=== PATIENT | female | born 1945 | race Caucasian/White ===

== ENCOUNTER 2019-12-26 19:40 | Emergency (ER) | payer BC, MEDICARE ==
--- NOTE | 2019-12-26 20:36 | EDM.PDOC ---
ED HPI GENERAL MEDICAL PROBLEM - General Chief Complaint: General Stated Complaint: flashes/spots in left eye Time Seen by Provider: 12/26/19 20:22 Source of Information: Reports: Patient History Limitations: Reports: No Limitations - History of Present Illness INITIAL COMMENTS - FREE TEXT/NARRATIVE: This patient is a 74 year old female that presents to the ER. Patient reports that last night at 8pm she was watching tv when she started having flashes of light in her left eye. Then, started having floaters in that eye. She reports no pain with it. She reports then throughout today she started to notice peripheral vision loss to the left eye. She came to the ER to have her eye checked. Onset Date: 12/25/19 Onset Time: 20:00 Duration: Day(s): (1) Location: Reports: Other (left eye) Severity: Moderate Improves with: Reports: None Worsens with: Reports: None Associated Symptoms: Reports: No Other Symptoms. Denies: Confusion, Chest Pain, Cough, cough w sputum, Diaphoresis, Fever/Chills, Headaches, Loss of Appetite, Malaise, Nausea/Vomiting, Rash, Seizure, Shortness of Breath, Syncope, Weakness - Related Data Allergies Allergy/AdvReac Type Severity Reaction Status Date / Time cefuroxime Allergy Facial Verified 12/26/19 20:32 Swelling chlorhexidine Allergy Facial Verified 12/26/19 20:32 Swelling erythromycin base Allergy Facial Verified 12/26/19 20:32 Swelling fentanyl Allergy Swollen Verified 12/26/19 20:32 Tongue gabapentin Allergy Facial Verified 12/26/19 20:32 Swelling hydrocodone Allergy Facial Verified 12/26/19 20:32 Swelling ketorolac [From Toradol] Allergy Facial Verified 12/26/19 20:32 Swelling levofloxacin [From Levaquin] Allergy Facial Verified 12/26/19 20:32 Swelling midazolam [From Versed] Allergy Facial Verified 12/26/19 20:32 Swelling oxycodone Allergy Facial Verified 12/26/19 20:32 Swelling Penicillins Allergy Swelling Verified 12/26/19 20:32 Sulfa (Sulfonamide Allergy Facial Verified 12/26/19 20:32 Antibiotics) Swelling sumatriptan [From Imitrex] Allergy Facial Verified 12/26/19 20:32 Swelling tetracycline Allergy Facial Verified 12/26/19 20:32 Swelling Home Meds: Home Meds Acetaminophen [Tylenol Extra Strength] 1,000 mg PO TID 12/26/19 [History] Aspirin 81 mg PO DAILY 12/26/19 [History] Calcium Carbonate/Vitamin D3 [Calcium 1,000 + D3 Caplet] 1 tab PO DAILY 12/26/19 [History] Clopidogrel Bisulfate [Plavix] 75 mg PO DAILY 12/26/19 [History] Omeprazole Magnesium [Prilosec] 20 mg PO BID 12/26/19 [History] Simvastatin [Zocor] 10 mg PO DAILY 12/26/19 [History] lisinopriL [Lisinopril] 20 mg PO BID 12/26/19 [History] nitrofurantoin macrocrystaL [Nitrofurantoin] 1 tab PO ASDIRECTED PRN 12/26/19 [History] traMADol [Ultram] 50 mg PO Q4HR PRN 12/26/19 [History] Past Medical History Cardiovascular History: Reports: High Cholesterol, Hypertension, [place], Stents Other Cardiovascular History: LA 2013. stents placed 2013 Gastrointestinal History: Reports: GERD Musculoskeletal History: Reports: Other (See Below) Other Musculoskeletal History: C5-C7 fractures Endocrine/Metabolic History: Reports: Osteoporosis, Other (See Below) Other Endocrine/Metabolic History: parathyroid tumor Oncologic (Cancer) History: Reports: Cervix - Past Surgical History HEENT Surgical History: Reports: Other (See Below) Other HEENT Surgeries/Procedures: hx of uveitis Endocrine Surgical History: Reports: Parathyroidectomy Musculoskeletal Surgical History: Reports: Hip Replacement, Knee Replacement Other Musculoskeletal Surgeries/Procedures:: bilateral total hip replacements. left total knee replacement Social & Family History - Tobacco Use Smoking Status *Q: Current Every Day Smoker Years of Tobacco use: 54 Packs/Tins Daily: 1 - Caffeine Use Caffeine Use: Reports: Coffee - Recreational Drug Use Recreational Drug Use: No ED ROS GENERAL - Review of Systems Review Of Systems: See Below Constitutional: Reports: No Symptoms HEENT: Reports: Vision Change (left eye black spots, floaters, peripheral vision loss, flashes of light). Denies: Eye Pain Respiratory: Reports: No Symptoms Cardiovascular: Reports: No Symptoms Endocrine: Reports: No Symptoms GI/Abdominal: Reports: No Symptoms. Denies: Nausea, Vomiting : Reports: No Symptoms Musculoskeletal: Reports: No Symptoms Skin: Reports: No Symptoms Neurological: Reports: No Symptoms. Denies: Dizziness, Headache, Syncope, Trouble Speaking, Difficulty Walking, Change in Speech Psychiatric: Reports: No Symptoms Hematologic/Lymphatic: Reports: No Symptoms Immunologic: Reports: No Symptoms ED EXAM, GENERAL - Physical Exam Exam: See Below Exam Limited By: No Limitations General Appearance: Alert, WD/WN, No Apparent Distress Eye Exam: Bilateral Eye: EOMI, Normal Inspection, PERRL Ears: Normal External Exam, Normal Canal, Hearing Grossly Normal, Normal TMs Ear Exam: Bilateral Ear: Auricle Normal, Canal Normal, TM normal Nose: Normal Inspection, Normal Mucosa, No Blood Throat/Mouth: Normal Inspection, Normal Lips, Normal Teeth, Normal Gums, Normal Oropharynx, Normal Voice, No Airway Compromise Head: Atraumatic, Normocephalic Neck: Normal Inspection, Supple, Non-Tender, Full Range of Motion Respiratory/Chest: No Respiratory Distress, Lungs Clear, Normal Breath Sounds, No Accessory Muscle Use Cardiovascular: Normal Peripheral Pulses, Regular Rate, Rhythm, No Edema, No Gallop, No JVD, No Murmur, No Rub Course - Vital Signs Last Recorded V/S: Last Vital Signs Temp 96.3 F L 12/26/19 20:20 Pulse 79 12/26/19 20:20 Resp 16 12/26/19 20:20 BP 202/78 H 12/26/19 20:22 Pulse Ox 95 12/26/19 20:20 - Orders/Labs/Meds Labs: Laboratory Tests 12/26/19 12/26/19 12/26/19 Range/Units 20:50 20:50 20:50 WBC 8.0 (5.0-10.0) 10^3/uL RBC 4.23 (4.00-5.50) 10^6/uL Hgb 11.9 L (12.0-16.0) g/dL Hct 37.1 (37.0-47.0) % MCV 87.7 (82.0-94.0) fL MCH 28.1 (27.0-32.0) pg MCHC 32.1 L (33.0-38.0) g/dL RDW Coeff of Juanito 17.0 H (11.0-15.0) % Plt Count 462 H (150-400) 10^3/uL Neut % (Auto) 56.0 (35-85) % Lymph % (Auto) 30.0 (10-55) % [place] % (Auto) 10.9 (0-16) % Eos % (Auto) 2.2 (0-5) % Baso % (Auto) 0.9 (0-3) % Neut # (Auto) 4.50 (1.80-7.00) 10^3/uL Lymph # (Auto) 2.41 (1.00-4.80) 10^3/uL [place] # (Auto) 0.88 H (0.00-0.80) 10^3/uL Eos # (Auto) 0.18 (0.00-0.45) 10^3/uL Baso # (Auto) 0.07 10^3/uL PT 10.7 (9.7-12.3) SEC INR 1.06 (0.92-1.18) Sodium 137 (136-145) mEq/L Potassium 4.5 (3.5-5.0) mEq/L Chloride 99 (98-106) mEq/L Carbon Dioxide 30 (21-32) mmol/L BUN 22 H (7-18) mg/dL Creatinine 1.8 H (0.6-1.0) mg/dL Est Cr Clr Drug Dosing 24.40 mL/min Estimated GFR (MDRD) 28 L (>=60) mL/min Glucose 97 (75-99) mg/dL Calcium 9.1 (8.4-10.1) mg/dL Total Bilirubin 0.2 (0.0-1.0) mg/dL AST 15 (15-37) U/L ALT 14 (12-78) U/L Alkaline Phosphatase 106 (46-116) U/L Lactate Dehydrogenase 171 (100-190) U/L Creatine Kinase 146 (21-215) U/L Troponin I < 0.017 (0.00-0.06) ng/mL Total Protein 7.9 (6.4-8.2) g/dL Albumin 3.8 (3.4-5.0) g/dL - Re-Assessments/Exams Free Text/Narrative Re-Assessment/Exam: 12/26/19 21:06 Due to patient HTN in the ER, and her symptoms. I did consult with Jacque about this patient. I believe its a retinal detachment, but wanted to be sure nothing medical need to do with her BP with those symptoms. Dr. Min Santillan reports to do nothing with BP. Just refer to eye. Reports not hypertensive emergency. Patient has no symptoms of unilateral weakness, chest pain, shortness of breath, nausea, dizziness. 12/26/19 21:14 I have tried to call [facility] [employer] [facility] without an answer. I then called Dr. Piper Araujo, she called back but she is out of town. She gave me Dr. Bernard cell, but he is not answering. I then just now left a voicemail with Dr. Scruggs. 12/26/19 21:27 Dr. Scruggs called back, he reports to have patient avoid heavy lift. Have patient call office in morning tomorrow to be seen. As soon as I hung up, Dr. Bernard called back and added have patient lay on back with eyes up, hold blood thinners tomorrow. Call office in morning for possible surgery. 12/26/19 21:33 I have reviewed patient labs. Her CR is 1.8. I have no previous labs. I recommended fluid bolus and correction of this lab. She has refused. She reports she is here for her eye and is ready to leave. She reports that she will followup with her family doctor about that lab and drink plenty of fluids at home. 12/26/19 21:35 Departure - Departure Time of Disposition: 21:29 Disposition: Home, Self-Care 01 Condition: Fair Clinical Impression: Elevated creatine kinase level Retinal detachment Qualifiers: Laterality: left Qualified Code(s): H33.22 - Serous retinal detachment, left eye Hypertension Qualifiers: Hypertension type: unspecified Qualified Code(s): I10 - Essential (primary) hypertension - Discharge Information *PRESCRIPTION DRUG MONITORING PROGRAM REVIEWED*: Not Applicable *COPY OF PRESCRIPTION DRUG MONITORING REPORT IN PATIENT JUDE: Not Applicable Instructions: Creatine Kinase Test, Retinal Detachment, Hypertension, Adult, [id number] Referrals: PCP,Unknown [Primary Care Provider] - Forms: ED Department Discharge Additional Instructions: Followup with Dr. Bernard: Call [phone] at 8am to be seen that morning [facility] [address] [place], [place] Lay on back with eyes up No heavy lifting Rest Do not take your Plavix or blood thinners tomorrow Return to the ER for weakness, complete vision loss, stroke, heart attack Followup with your primary care provider regarding your Creatnine lab Sepsis Event Note (ED) - Evaluation Sepsis Screening Result: No Definite Risk - Focused Exam Vital Signs: Vital Signs Temp Pulse Resp BP BP Pulse Ox 12/26/19 20:22 202/78 H 12/26/19 20:20 96.3 F L 79 16 210/142 H 95 12/26/19 19:45 96.3 F L 79 18 219/88 H 97 - Assessment/Plan Plan: PLEASE SEE RN NOTE FOR PFSH.
[2019-12-26 21:16] LABS: CHLORIDE,CL 99 mEq/L (98-106); SODIUM,NA 137 mEq/L (136-145)
== END 2019-12-26 21:38 | disposition home or self-care (01) ==
LOC: CC.ED 19:40
DX: H33.22 Serous retinal detachment, left eye (principal); I10 Essential (primary) hypertension; R74.8 Abnormal levels of other serum enzymes; E78.00 Pure hypercholesterolemia, unspecified; I25.2 Old myocardial infarction; K21.9 Gastro-esophageal reflux disease without esophagitis; M81.0 Age-related osteoporosis without current pathological fracture; F17.210 Nicotine dependence, cigarettes, uncomplicated; Z88.1 Allergy status to other antibiotic agents; Z88.0 Allergy status to penicillin; Z88.2 Allergy status to sulfonamides; Z88.3 Allergy status to other anti-infective agents; Z88.4 Allergy status to anesthetic agent; Z88.6 Allergy status to analgesic agent; Z88.9 Allergy status to unspecified drugs, medicaments and biological substances; Z88.8 Allergy status to other drugs, medicaments and biological substances; Z79.82 Long term (current) use of aspirin; Z79.899 Other long term (current) drug therapy; Z79.02 Long term (current) use of antithrombotics/antiplatelets
CPT/HCPCS: 36415; 80053; 82550; 83615; 84484; 85025; 85610; 99284

== ENCOUNTER 2020-03-22 15:55 | Observation (INO) | payer BC, MEDICARE ==
[2020-03-22 16:32] LABS: CHLORIDE,CL 95 mEq/L (98-106); SODIUM,NA 133 mEq/L (136-145)
--- NOTE | 2020-03-22 18:43 | EDM.PDOC ---
ED HPI GENERAL MEDICAL PROBLEM - General Chief Complaint: Neuro Symptoms/Deficits Stated Complaint: ER Time Seen by Provider: 03/22/20 16:15 Source of Information: Reports: Patient History Limitations: Reports: No Limitations - History of Present Illness INITIAL COMMENTS - FREE TEXT/NARRATIVE: Mel is a 74 year old female who presents to ER with complaints of vision changes in her left eye. Patient was seen this am by Vijay Tripathi for a hospital follow up. 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 She was sent home on Plavix and was to take Lisinopril but "said did not understand it like that so had not been taking it". Blood pressure was very high at 214/108. She said she "was not that concerned about this as she was told by neurology that her blood pressure would be high after all of this". She has had difficulty with peripheral vision of her right eye since that time. Also relates that she had been on Plavix prior to her stroke but it was stopped due to hemorrhages in her eye. She had also been scheduled to see a tree driller in [place] but relates "would want to keep all my doctoring in [place] as that is where I lived until 2 months ago" Per history, patient has also bee on Amlodipine and ImDur in December and Clonidine but states "they did not work". Vijay reviewed her discharge notes that patient was to start Lisinopril on discharge from [place]. She was sent to [facility] this am for IV Labetalol due to high blood pressure at visit. In [facility], blood pressure was 264/99. Was given IV med and repeat blood pressure did improve to 203/80. Had been discussed about giving further 10 mg of the med but patient refused as wanted to go home and take her own meds. This afternoon, patient noted that her vision was blurry in her left eye and was advised to be seen in the ER. No change in headache, no numbness, tingling or weakness in extremities. States is starting to get back some of her word recall back but really cannot read or write yet. Onset: Today, Gradual Duration: Hour(s):, Getting Worse Location: Reports: Head Associated Symptoms: Denies: Confusion, Chest Pain, Cough, cough w sputum, Fever/Chills, Headaches, Nausea/Vomiting, Seizure, Shortness of Breath - Related Data Allergies Allergy/AdvReac Type Severity Reaction Status Date / Time cefuroxime Allergy Facial Verified 03/22/20 11:53 Swelling chlorhexidine Allergy Facial Verified 03/22/20 11:53 Swelling erythromycin base Allergy Facial Verified 03/22/20 11:53 Swelling fentanyl Allergy Swollen Verified 03/22/20 11:53 Tongue gabapentin Allergy Facial Verified 03/22/20 11:53 Swelling hydrocodone Allergy Facial Verified 03/22/20 11:53 Swelling ketorolac [From Toradol] Allergy Facial Verified 03/22/20 11:53 Swelling levofloxacin [From Levaquin] Allergy Facial Verified 03/22/20 11:53 Swelling midazolam [From Versed] Allergy Facial Verified 03/22/20 11:53 Swelling oxycodone Allergy Facial Verified 03/22/20 11:53 Swelling Penicillins Allergy Swelling Verified 03/22/20 11:53 Sulfa (Sulfonamide Allergy Facial Verified 03/22/20 11:53 Antibiotics) Swelling sumatriptan [From Imitrex] Allergy Facial Verified 03/22/20 11:53 Swelling tetracycline Allergy Facial Verified 03/22/20 11:53 Swelling Home Meds: Home Meds Acetaminophen [Tylenol Extra Strength] 1,000 mg PO TID 12/26/19 [History] Aspirin 81 mg PO DAILY 12/26/19 [History] Calcium Carbonate/Vitamin D3 [Calcium 1,000 + D3 Caplet] 1 tab PO DAILY 12/26/19 [History] Clopidogrel Bisulfate [Plavix] 75 mg PO DAILY 12/26/19 [History] Omeprazole Magnesium [Prilosec] 20 mg PO BID 12/26/19 [History] Simvastatin [Zocor] 10 mg PO DAILY 12/26/19 [History] lisinopriL [Lisinopril] 20 mg PO BID 12/26/19 [History] nitrofurantoin macrocrystaL [Nitrofurantoin] 1 tab PO ASDIRECTED PRN 12/26/19 [History] traMADol [Ultram] 50 mg PO Q4HR PRN 12/26/19 [History] Past Medical History Cardiovascular History: Reports: High Cholesterol, Hypertension, [place], Stents Other Cardiovascular History: NE 2013. stents placed 2013 Gastrointestinal History: Reports: GERD Musculoskeletal History: Reports: Other (See Below) Other Musculoskeletal History: C5-C7 fractures Endocrine/Metabolic History: Reports: Osteoporosis, Other (See Below) Other Endocrine/Metabolic History: parathyroid tumor Oncologic (Cancer) History: Reports: Cervix - Past Surgical History HEENT Surgical History: Reports: Other (See Below) Other HEENT Surgeries/Procedures: hx of uveitis Endocrine Surgical History: Reports: Parathyroidectomy Musculoskeletal Surgical History: Reports: Hip Replacement, Knee Replacement Other Musculoskeletal Surgeries/Procedures:: bilateral total hip replacements. left total knee replacement Social & Family History - Tobacco Use Tobacco Use Status *Q: Current Every Day Tobacco User Years of Tobacco use: 54 Packs/Tins Daily: 1.5 - Caffeine Use Caffeine Use: Reports: Coffee, Soda - Recreational Drug Use Recreational Drug Use: No ED ROS GENERAL - Review of Systems Review Of Systems: See Below Constitutional: Denies: Fever, Chills, Malaise, Weakness, Fatigue, Decreased Appetite HEENT: Reports: Vision Change (history of peripheral vision loss of right eye, now having blurred vision in left eye). Denies: Ear Pain, Eye Discharge, Eye Pain, Nose Pain, Sinus Problem, Throat Pain, Vertigo Respiratory: Denies: Shortness of Breath, Cough Cardiovascular: Denies: Chest Pain, Edema, Lightheadedness Endocrine: Denies: Fatigue GI/Abdominal: Reports: Abdominal Pain (was having cramping to abdomen prior to my arrival, states now resolved). Denies: Constipation, Diarrhea, Nausea, Vomiting : Reports: No Symptoms Musculoskeletal: Reports: No Symptoms Skin: Reports: No Symptoms Neurological: Reports: Headache (has had mild headaches at times), Pre-Existing Deficit, Difficulty Walking (admits to balance issues prior to stroke at the end of January but has improved now). Denies: Syncope, Weakness Psychiatric: Reports: No Symptoms ED EXAM, NEURO - Physical Exam Exam: See Below Exam Limited By: No Limitations General Appearance: Alert, WD/WN, No Apparent Distress Eye Exam: Bilateral Eye: EOMI (some nystagumus noted to right eye with lateral gaze), PERRL Ears: Normal External Exam, Normal TMs Nose: Normal Inspection, Normal Mucosa, No Blood Throat/Mouth: Normal Inspection, Normal Oropharynx Head Exam: Normocephalic Neck: Normal Inspection, Supple, Non-Tender Respiratory/Chest: No Respiratory Distress, Lungs Clear, Normal Breath Sounds Cardiovascular: Regular Rate, Rhythm GI/Abdominal: Normal Bowel Sounds, Soft, Non-Tender Neurological: Alert, Normal Mood/Affect, Normal Dorsiflexion, CN II-XII Intact, Normal Plantar Flexion, Oriented x 3, Other (patient unable to identify pictures by name, ie could describe the chair as "something you sit on" but unable to name. ) Extremities: Normal Inspection, No Pedal Edema Skin Exam: Warm, Dry Course - Vital Signs Last Recorded V/S: Last Vital Signs Temp 98.4 F 03/22/20 16:55 Pulse 66 03/22/20 17:40 Resp 14 03/22/20 17:40 BP 158/80 H 03/22/20 17:40 Pulse Ox 94 L 03/22/20 17:40 - Orders/Labs/Meds Orders: Active Orders 24 hr Category Date Time Status Blood Glucose Check, Bedside [] ONETIME Care 03/22/20 15:35 Active Telemetry Monitoring [Cardiac Monitoring] [RC] . Care 03/22/20 15:35 Active DIRECTED Head wo Cont [CT] Stat Exams 03/22/20 16:29 Taken Labs: Laboratory Tests 03/22/20 03/22/20 03/22/20 Range/Units 16:05 16:10 16:10 WBC (5.0-10.0) 10^3/uL RBC (4.00-5.50) 10^6/uL Hgb (12.0-16.0) g/dL Hct (37.0-47.0) % MCV (82.0-94.0) fL MCH (27.0-32.0) pg MCHC (33.0-38.0) g/dL RDW Coeff of Juanito (11.0-15.0) % Plt Count (150-400) 10^3/uL Neut % (Auto) (35-85) % Lymph % (Auto) (10-55) % Clark % (Auto) (0-16) % Eos % (Auto) (0-5) % Baso % (Auto) (0-3) % Neut # (Auto) (1.80-7.00) 10^3/uL Lymph # (Auto) (1.00-4.80) 10^3/uL Clark # (Auto) (0.00-0.80) 10^3/uL Eos # (Auto) (0.00-0.45) 10^3/uL Baso # (Auto) 10^3/uL PT 11.0 (9.7-12.3) SEC INR 1.09 (0.92-1.18) Sodium 133 L (136-145) mEq/L Potassium 2.9 L* D (3.5-5.0) mEq/L Chloride 95 L (98-106) mEq/L Carbon Dioxide 32 (21-32) mmol/L BUN 24 H (7-18) mg/dL Creatinine 1.5 H (0.6-1.0) mg/dL Est Cr Clr Drug Dosing TNP Estimated GFR (MDRD) 34 L (>=60) mL/min Glucose 116 H (75-99) mg/dL POC Glucose 131 H (75-105) mg/dl Calcium 8.8 (8.4-10.1) mg/dL Magnesium 1.7 L (1.8-2.4) mg/dL Creatine Kinase 127 (21-215) U/L Troponin I 0.028 (0.00-0.06) ng/mL Urine Color (YELLOW) Urine Appearance (CLEAR) Urine pH (4.5-8.0) Ur Specific [place] (1.003-1.020) Urine Protein (NEGATIVE) mg/dL Urine Glucose (UA) (NEGATIVE) mg/dL Urine Ketones (NEGATIVE) mg/dL Urine Occult Blood (NEGATIVE) Urine Nitrite (NEGATIVE) Urine Bilirubin (NEGATIVE) Urine Urobilinogen (0.2-1.0) EU/dL Ur Leukocyte Esterase (NEGATIVE) Urine RBC Urine WBC 03/22/20 03/22/20 Range/Units 16:10 16:15 WBC 7.9 (5.0-10.0) 10^3/uL RBC 4.24 (4.00-5.50) 10^6/uL Hgb 12.1 (12.0-16.0) g/dL Hct 37.1 (37.0-47.0) % MCV 87.5 (82.0-94.0) fL MCH 28.5 (27.0-32.0) pg MCHC 32.6 L (33.0-38.0) g/dL RDW Coeff of Juanito 15.1 H (11.0-15.0) % Plt Count 465 H (150-400) 10^3/uL Neut % (Auto) 64.6 (35-85) % Lymph % (Auto) 20.8 (10-55) % [place] % (Auto) 13.1 (0-16) % Eos % (Auto) 0.9 (0-5) % Baso % (Auto) 0.6 (0-3) % Neut # (Auto) 5.09 (1.80-7.00) 10^3/uL Lymph # (Auto) 1.64 (1.00-4.80) 10^3/uL [place] # (Auto) 1.03 H (0.00-0.80) 10^3/uL Eos # (Auto) 0.07 (0.00-0.45) 10^3/uL Baso # (Auto) 0.05 10^3/uL PT (9.7-12.3) SEC INR (0.92-1.18) Sodium (136-145) mEq/L Potassium (3.5-5.0) mEq/L Chloride (98-106) mEq/L Carbon Dioxide (21-32) mmol/L BUN (7-18) mg/dL Creatinine (0.6-1.0) mg/dL Est Cr Clr Drug Dosing Estimated GFR (MDRD) (>=60) mL/min Glucose (75-99) mg/dL POC Glucose (75-105) mg/dl Calcium (8.4-10.1) mg/dL Magnesium (1.8-2.4) mg/dL Creatine Kinase (21-215) U/L Troponin I (0.00-0.06) ng/mL Urine Color Rachael (YELLOW) Urine Appearance Slightly cloudy (CLEAR) Urine pH 5.5 (4.5-8.0) Ur Specific [place] >= 1.030 H (1.003-1.020) Urine Protein >=300 H (NEGATIVE) mg/dL Urine Glucose (UA) Negative (NEGATIVE) mg/dL Urine Ketones Negative (NEGATIVE) mg/dL Urine Occult Blood Small H (NEGATIVE) Urine Nitrite Negative (NEGATIVE) Urine Bilirubin Negative (NEGATIVE) Urine Urobilinogen 0.2 (0.2-1.0) EU/dL Ur Leukocyte Esterase Small H (NEGATIVE) Urine RBC QNS Urine WBC QNS - Re-Assessments/Exams Free Text/Narrative Re-Assessment/Exam: 03/22/20 Labs noted. Potassium is low at 2.9. CT read as improved from prior CT. Contacted [facility] and spoke with Dr. Saldivar, neurosurgeon on stroke team. He reviewed films and relates that likely vision changes, prior CVA related to hypertensive changes. Edema had much improved and notes small hemo rrhage on CT today. Advised to hold Plavix for 5 days and repeat scan unless changes prior to this. May consider MRI on Friday. Strict blood pressure control to attempt to maintain around 140/90 or less. Advised patient on consult. Informed of concerns with nicotine use but admits "will never be able to stop". Tried to stop one time "and I nearly went crazy". Was advised that changes may all be related to hypertension. Discussed previous appointment that was scheduled with Dr. Reynolds and states she is willing to see a tree driller but in "[place]". Advised of small hemorrhage and need of strict blood pressure control to prevent further bleeding or massive stroke. She states she does not want CPR, Intubation and if that happens, need to "let me ". patient is agreeable to observation as recommended by neurosurgery. Will monitor telemetry and blood pressures. Departure - Departure Time of Disposition: 19:02 Disposition: Refer to Observation Condition: Fair Clinical Impression: Hypertensive urgency - Discharge Information *PRESCRIPTION DRUG MONITORING PROGRAM REVIEWED*: No *COPY OF PRESCRIPTION DRUG MONITORING REPORT IN PATIENT JUDE: No Referrals: PCP,Unobtain [Primary Care Provider] - Sepsis Event Note (ED) - Evaluation Sepsis Screening Result: No Definite Risk - Focused Exam Vital Signs: Vital Signs Temp Pulse Resp BP Pulse Ox 03/22/20 17:40 66 14 158/80 H 94 L 03/22/20 17:25 66 18 162/65 H 94 L 03/22/20 17:10 64 15 164/66 H 94 L 03/22/20 16:55 98.4 F 64 14 145/69 H 96 03/22/20 16:40 64 15 149/73 H 94 L 03/22/20 16:32 97.1 F 70 20 184/72 H 99 03/22/20 16:25 72 14 182/77 H 94 L 03/22/20 16:10 72 20 170/60 H 95 03/22/20 15:55 97.1 F 70 20 184/72 H 99 - Problem List & Annotations (1) Hypokalemia SNOMED Code(s): 73603993 Code(s): E87.6 - HYPOKALEMIA Status: Acute Priority: High Current Visit: Yes (2) Hypertensive urgency SNOMED Code(s): 944648924 Code(s): I16.0 - HYPERTENSIVE URGENCY Status: Acute Priority: High Current Visit: Yes - Problem List Review Problem List Initiated/Reviewed/Updated: Yes - My Orders Last 24 Hours: My Active Orders 03/22/20 15:35 Blood Glucose Check, Bedside [RC] ONETIME Telemetry Monitoring [Cardiac Monitoring] [RC] . DIRECTED 03/22/20 16:29 Head wo Cont [CT] Stat - Assessment/Plan Admission H&P: Please use this note as an admission H&P Last 24 Hours: My Active Orders 03/22/20 15:35 Blood Glucose Check, Bedside [RC] ONETIME Telemetry Monitoring [Cardiac Monitoring] [RC] . DIRECTED 03/22/20 16:29 Head wo Cont [CT] Stat Assessment:: Hypertensive Urgency Hypokalemia Plan: Admit to observation. Will continue with telemetry, blood pressures every 4 hours. Lisinopril BID. Hold Plavix. Repeat CT scan if neuro changes or again in 5 days.
[2020-03-22] MEDS ORDERED: TRAMADOL 50 MG PO PRN (19:18)
[2020-03-22] MEDS ORDERED: NITROFURANTOIN MACROCRYSTAL PO PRN (19:18)
[2020-03-22] MEDS ORDERED: Acetaminophen 325 MG Tab PO PRN (19:32)
[2020-03-22] MEDS ORDERED: Sodium Chloride 0.9% 10 ML Syringe FLUSH PRN (19:32)
[2020-03-22] MEDS ORDERED: Ondansetron 4 MG/2 ML SDV IV PRN (19:32)
[2020-03-22] MEDS ORDERED: Ondansetron 4 MG Tab.DIS PO PRN (19:32)
[2020-03-22] MEDS: OMEPRAZOLE MAGNESIUM 20 MG PO SCH (20:25)
[2020-03-22] MEDS: LISINOPRIL 20 MG PO SCH (20:25)
[2020-03-22] MEDS: Acetaminophen 500 MG Tab PO SCH (20:31)
[2020-03-22] MEDS: NS + KCl 20mEq/L 1,000 ML IV SCH (20:39)
[2020-03-22] MEDS: Nicotine 21 MG/24 Hr Patch TRDERM SCH (21:17)
[2020-03-23] MEDS ORDERED: diphenhydrAMINE 25 MG Cap PO ONE (02:38)
[2020-03-23] MEDS: NS + KCl 20mEq/L 1,000 ML IV SCH (06:14)
[2020-03-23] MEDS ORDERED: Aspirin 81 MG Tab.Chew PO SCH (08:00)
[2020-03-23] MEDS ORDERED: VITAMIN D3 PO SCH (08:00)
[2020-03-23] MEDS ORDERED: ATORVASTATIN 40MG TAB PO SCH (08:00)
[2020-03-23] MEDS ORDERED: CALCIUM 600 MG PO SCH (08:00)
[2020-03-23] MEDS: LISINOPRIL 20 MG PO SCH (08:51)
[2020-03-23] MEDS: Acetaminophen 500 MG Tab PO SCH (08:51)
[2020-03-23] MEDS: OMEPRAZOLE MAGNESIUM 20 MG PO SCH (08:51)
[2020-03-23] MEDS: Nicotine 21 MG/24 Hr Patch TRDERM SCH (08:52)
--- NOTE | 2020-03-23 08:55 | PCM.DCSUM1 ---
Discharge Summary - Hospital Course HPI Initial Comments: Mel is a 74 yo female who was admitted from the ED yesterday after having some vision changes in her left eye. She was seen prior in clinic and did have extremely high blood pressure and attempted to bring down in same day care with IV labetolol. Patient declined second dose of Labetolol and left ambulatory. She started to have blurry vision in her left eye after getting home and called back into the clinic as she wasn't sure what to do. Patient was advised to go immediately to the ED. Patient was admitted secondary to hypertensive urgency and operator electronic warfare provider, Iris Galvez, did consult with neurosurgery in [place] after getting a CT scan of the brain. It was felt the CT scan had shown improvement from prior stroke a couple weeks ago. Neurosurgery recommended admission to closely monitor blood pressure. Advised to hold Plavix for 5 days. - Discharge Data Discharge Date: 03/23/20 Discharge Disposition: Home, Self-Care 01 Condition: Good - Referral to Home Health Primary Care Physician: Ricardo Tripathi PA-C - Discharge Diagnosis/Problem(s) (1) Hypertensive urgency SNOMED Code(s): 109053875 ICD Code: I16.0 - HYPERTENSIVE URGENCY Status: Acute Priority: High Current Visit: Yes (2) Hypokalemia SNOMED Code(s): 01364259 ICD Code: E87.6 - HYPOKALEMIA Status: Acute Priority: High Current Visit: Yes - Patient Summary/Data Consults: Neurosurgery, Dr. Saldivar, at [facility] in [place] Recommended Follow-up Testing/Procedures: Advise repeat CT scan in 5 days of the brain and appointment in clinic that day prior. Hospital Course: Mel had an uneventful hospital stay. Denies any new onset of symptoms. States the vision in her left eye is much improved today from yesterday. Nursing staff states her blood pressure has been stable through out the night. - Patient Instructions Diet: Low Sodium Activity: As Tolerated - Discharge Plan *PRESCRIPTION DRUG MONITORING PROGRAM REVIEWED*: No *COPY OF PRESCRIPTION DRUG MONITORING REPORT IN PATIENT JUDE: No Prescriptions/Med Rec: Nicotine [Habitrol] 21 mg TRDERM DAILY #14 patch Potassium Chloride 20 meq PO DAILY #30 tablet.er Home Medications: Home Meds Acetaminophen [Tylenol Extra Strength] 1,000 mg PO TID 12/26/19 [History] Aspirin 81 mg PO DAILY 12/26/19 [History] Calcium Carbonate/Vitamin D3 [Calcium 1,000 + D3 Caplet] 1 tab PO DAILY 12/26/19 [History] Omeprazole Magnesium [Prilosec] 20 mg PO BID 12/26/19 [History] lisinopriL [Lisinopril] 20 mg PO BID 12/26/19 [History] Nicotine [Habitrol] 21 mg TRDERM DAILY #14 patch 03/23/20 [Rx] Potassium Chloride 20 meq PO DAILY #30 tablet.er 03/23/20 [Rx] atorvaSTATin [Lipitor] 40 mg PO BEDTIME 03/23/20 [History] cloNIDine [Catapres] 0.1 mg PO BID 03/23/20 [History] Forms: ED Department Discharge Referrals: Ricardo Tripathi PA-C [Primary Care Provider] - 03/27/20 (Recheck blood pressure in clinic than CT scan of brain. ) - Discharge Summary/Plan Comment DC Time >30 min.: Yes Discharge Summary/Plan Comment: Will discharge home this morning as blood pressure has been stable over night. Discussed discharge instructions with patient. She is advised if any further neurological changes to return immediately. Will hold Plavix for 5 days until follow up. CT scan to be repeated in 5 days. Advised Mel to stick with her appointment with therapy tomorrow as well. Will have her take her blood pressure medications as directed. If any neurological deficits would arise, need to return immediately to ED. - General Info Date of Service: 03/23/20 Subjective Update: Mel denies any concerns today. states she is feeling better than she did yesterday. States she needs to go home and is requesting to be discharged home right away. Functional Status: Reports: Tolerating Diet, Ambulating - Review of Systems General: Reports: No Symptoms HEENT: Reports: No Symptoms Pulmonary: Reports: No Symptoms Cardiovascular: Reports: No Symptoms Gastrointestinal: Reports: No Symptoms Genitourinary: Reports: No Symptoms Musculoskeletal: Reports: No Symptoms Skin: Reports: No Symptoms Neurological: Reports: No Symptoms, Pre-Existing Deficit - Patient Data Vitals - Most Recent: Last Vital Signs Temp 98.2 F 03/23/20 03:30 Pulse 70 03/23/20 03:30 Resp 18 03/23/20 03:30 BP 158/63 H 03/23/20 03:30 Pulse Ox 94 L 03/23/20 03:30 Weight - Most Recent: 125 lb I&O - Last 24 hours: Intake & Output 03/22/20 03/23/20 03/23/20 22:59 06:59 14:59 Intake Total 958 Balance 958 Lab Results - Last 24 hrs: Laboratory Results - last 24 hr 03/22/20 03/22/20 03/22/20 Range/Units 16:05 16:10 16:10 WBC (5.0-10.0) 10^3/uL RBC (4.00-5.50) 10^6/uL Hgb (12.0-16.0) g/dL Hct (37.0-47.0) % MCV (82.0-94.0) fL MCH (27.0-32.0) pg MCHC (33.0-38.0) g/dL RDW Coeff of Juanito (11.0-15.0) % Plt Count (150-400) 10^3/uL Neut % (Auto) (35-85) % Lymph % (Auto) (10-55) % Real % (Auto) (0-16) % Eos % (Auto) (0-5) % Baso % (Auto) (0-3) % Neut # (Auto) (1.80-7.00) 10^3/uL Lymph # (Auto) (1.00-4.80) 10^3/uL Real # (Auto) (0.00-0.80) 10^3/uL Eos # (Auto) (0.00-0.45) 10^3/uL Baso # (Auto) 10^3/uL PT 11.0 (9.7-12.3) SEC INR 1.09 (0.92-1.18) Sodium 133 L (136-145) mEq/L Potassium 2.9 L* D (3.5-5.0) mEq/L Chloride 95 L (98-106) mEq/L Carbon Dioxide 32 (21-32) mmol/L BUN 24 H (7-18) mg/dL Creatinine 1.5 H (0.6-1.0) mg/dL Est Cr Clr Drug Dosing TNP Estimated GFR (MDRD) 34 L (>=60) mL/min Glucose 116 H (75-99) mg/dL POC Glucose 131 H (75-105) mg/dl Calcium 8.8 (8.4-10.1) mg/dL Magnesium 1.7 L (1.8-2.4) mg/dL Creatine Kinase 127 (21-215) U/L Troponin I 0.028 (0.00-0.06) ng/mL Urine Color (YELLOW) Urine Appearance (CLEAR) Urine pH (4.5-8.0) Ur Specific [place] (1.003-1.020) Urine Protein (NEGATIVE) mg/dL Urine Glucose (UA) (NEGATIVE) mg/dL Urine Ketones (NEGATIVE) mg/dL Urine Occult Blood (NEGATIVE) Urine Nitrite (NEGATIVE) Urine Bilirubin (NEGATIVE) Urine Urobilinogen (0.2-1.0) EU/dL Ur Leukocyte Esterase (NEGATIVE) Urine RBC Urine WBC SARS CoV-2 RNA Rapid RONI (NEGATIVE) 03/22/20 03/22/20 03/22/20 Range/Units 16:10 16:15 18:25 WBC 7.9 (5.0-10.0) 10^3/uL RBC 4.24 (4.00-5.50) 10^6/uL Hgb 12.1 (12.0-16.0) g/dL Hct 37.1 (37.0-47.0) % MCV 87.5 (82.0-94.0) fL MCH 28.5 (27.0-32.0) pg MCHC 32.6 L (33.0-38.0) g/dL RDW Coeff of Juanito 15.1 H (11.0-15.0) % Plt Count 465 H (150-400) 10^3/uL Neut % (Auto) 64.6 (35-85) % Lymph % (Auto) 20.8 (10-55) % Real % (Auto) 13.1 (0-16) % Eos % (Auto) 0.9 (0-5) % Baso % (Auto) 0.6 (0-3) % Neut # (Auto) 5.09 (1.80-7.00) 10^3/uL Lymph # (Auto) 1.64 (1.00-4.80) 10^3/uL Real # (Auto) 1.03 H (0.00-0.80) 10^3/uL Eos # (Auto) 0.07 (0.00-0.45) 10^3/uL Baso # (Auto) 0.05 10^3/uL PT (9.7-12.3) SEC INR (0.92-1.18) Sodium (136-145) mEq/L Potassium (3.5-5.0) mEq/L Chloride (98-106) mEq/L Carbon Dioxide (21-32) mmol/L BUN (7-18) mg/dL Creatinine (0.6-1.0) mg/dL Est Cr Clr Drug Dosing Estimated GFR (MDRD) (>=60) mL/min Glucose (75-99) mg/dL POC Glucose (75-105) mg/dl Calcium (8.4-10.1) mg/dL Magnesium (1.8-2.4) mg/dL Creatine Kinase (21-215) U/L Troponin I (0.00-0.06) ng/mL Urine Color Rachael (YELLOW) Urine Appearance Slightly cloudy (CLEAR) Urine pH 5.5 (4.5-8.0) Ur Specific [place] >= 1.030 H (1.003-1.020) Urine Protein >=300 H (NEGATIVE) mg/dL Urine Glucose (UA) Negative (NEGATIVE) mg/dL Urine Ketones Negative (NEGATIVE) mg/dL Urine Occult Blood Small H (NEGATIVE) Urine Nitrite Negative (NEGATIVE) Urine Bilirubin Negative (NEGATIVE) Urine Urobilinogen 0.2 (0.2-1.0) EU/dL Ur Leukocyte Esterase Small H (NEGATIVE) Urine RBC QNS Urine WBC QNS SARS CoV-2 RNA Rapid RONI Negative (NEGATIVE) 03/23/20 03/23/20 Range/Units 06:55 06:55 WBC 7.8 (5.0-10.0) 10^3/uL RBC 4.27 (4.00-5.50) 10^6/uL Hgb 12.2 (12.0-16.0) g/dL Hct 37.6 (37.0-47.0) % MCV 88.1 (82.0-94.0) fL MCH 28.6 (27.0-32.0) pg MCHC 32.4 L (33.0-38.0) g/dL RDW Coeff of Juanito 15.4 H (11.0-15.0) % Plt Count 463 H (150-400) 10^3/uL Neut % (Auto) 59.3 (35-85) % Lymph % (Auto) 28.5 (10-55) % Real % (Auto) 9.9 (0-16) % Eos % (Auto) 1.5 (0-5) % Baso % (Auto) 0.8 (0-3) % Neut # (Auto) 4.62 (1.80-7.00) 10^3/uL Lymph # (Auto) 2.22 (1.00-4.80) 10^3/uL Real # (Auto) 0.77 (0.00-0.80) 10^3/uL Eos # (Auto) 0.12 (0.00-0.45) 10^3/uL Baso # (Auto) 0.06 10^3/uL PT (9.7-12.3) SEC INR (0.92-1.18) Sodium 139 (136-145) mEq/L Potassium 3.2 L (3.5-5.0) mEq/L Chloride 102 (98-106) mEq/L Carbon Dioxide 29 (21-32) mmol/L BUN 23 H (7-18) mg/dL Creatinine 1.6 H (0.6-1.0) mg/dL Est Cr Clr Drug Dosing 27.44 Estimated GFR (MDRD) 32 L (>=60) mL/min Glucose 90 (75-99) mg/dL POC Glucose (75-105) mg/dl Calcium 8.6 (8.4-10.1) mg/dL Magnesium (1.8-2.4) mg/dL Creatine Kinase (21-215) U/L Troponin I (0.00-0.06) ng/mL Urine Color (YELLOW) Urine Appearance (CLEAR) Urine pH (4.5-8.0) Ur Specific [place] (1.003-1.020) Urine Protein (NEGATIVE) mg/dL Urine Glucose (UA) (NEGATIVE) mg/dL Urine Ketones (NEGATIVE) mg/dL Urine Occult Blood (NEGATIVE) Urine Nitrite (NEGATIVE) Urine Bilirubin (NEGATIVE) Urine Urobilinogen (0.2-1.0) EU/dL Ur Leukocyte Esterase (NEGATIVE) Urine RBC Urine WBC SARS CoV-2 RNA Rapid RONI (NEGATIVE) Med Orders - Current: Current Medications Acetaminophen (Tylenol Extra Strength) 1,000 mg PO TID [facility] Last Admin: 03/22/20 20:31 Dose: 1,000 mg Documented by: Acetaminophen (Tylenol) 650 mg PO Q4H PRN PRN Reason: Pain (Mild 1-3)/fever Last Admin: 03/23/20 01:56 Dose: 650 mg Documented by: Aspirin (Aspirin) 81 mg PO DAILY [facility] Potassium Chloride/Sodium Chloride (Normal Saline With 20 Meq Kcl) 1,000 mls @ 100 mls/hr IV ASDIRECTED [facility] Last Admin: 03/23/20 06:14 Dose: 100 mls/hr Documented by: Lisinopril (Prinivil) 20 mg PO BID [facility] Last Admin: 03/22/20 20:25 Dose: 20 mg Documented by: Nicotine (Habitrol) 21 mg TRDERM DAILY [facility] Last Admin: 03/22/20 21:17 Dose: 21 mg Documented by: Calcium 600 Mg + Vitamin D3 20 Mcg# Own Med# 1 tab PO DAILY [facility] Omeprazole Magnesium [Prilosec] 20 Mg # Own Med# 20 mg PO BID [facility] Last Admin: 03/22/20 20:25 Dose: 20 mg Documented by: Ondansetron HCl (Zofran Odt) 4 mg PO Q4H PRN PRN Reason: nausea, able to take PO Ondansetron HCl (Zofran) 4 mg IV Q4H PRN PRN Reason: Nausea/Vomiting Simvastatin (Zocor) 10 mg PO BEDTIME [facility] Sodium Chloride (Saline Flush) 10 ml FLUSH ASDIRECTED PRN PRN Reason: Keep Vein Open Discontinued Medications Diphenhydramine HCl (Benadryl) 25 mg PO ONETIME ONE Stop: 03/23/20 02:39 Last Admin: 03/23/20 03:01 Dose: 25 mg Documented by: Non-Formulary Medication (Nitrofurantoin Macrocrystal [Nitrofurantoin]) 1 tab PO ASDIRECTED PRN PRN Reason: Chest Pain Tramadol HCl (Ultram) 50 mg PO Q4H PRN PRN Reason: Pain - Exam General: Reports: Alert, Oriented, Cooperative, No Acute Distress HEENT: Reports: Pupils Equal, Pupils Reactive, EOMI Neck: Reports: Supple Lungs: Reports: Clear to Auscultation, Normal Respiratory Effort Cardiovascular: Reports: Regular Rate, Regular Rhythm, No Murmurs Extremities: Normal Inspection, Non-Tender, No Pedal Edema Skin: Reports: Warm, Dry, Intact Neurological: Reports: No New Focal Deficit Psy/Mental Status: Reports: Alert, Normal Affect, Normal Mood
[2020-03-23] MEDS ORDERED: SIMVASTATIN 10 MG PO SCH (20:00)
== END 2020-03-23 10:00 | disposition home or self-care (01) ==
LOC: CC.ED 15:55 → UNDOADMOB 17:55 → CC.MS 17:55
PROVIDERS: ADMIT Physician Assistant Medical; ATTEND Family Medicine
DX: I16.0 Hypertensive urgency (principal); E87.6 Hypokalemia; E78.00 Pure hypercholesterolemia, unspecified; I10 Essential (primary) hypertension; I25.2 Old myocardial infarction; F17.210 Nicotine dependence, cigarettes, uncomplicated; Z79.899 Other long term (current) drug therapy; Z79.82 Long term (current) use of aspirin; Z95.5 Presence of coronary angioplasty implant and graft; Z98.890 Other specified postprocedural states; Z20.828 Contact with and (suspected) exposure to other viral communicable diseases
CPT/HCPCS: 36415; 70450; 80048; 81001; 82550; 82962; 83735; 84484; 85025; 85610; 93005; 96365; 96366; 99285-25; A9270-GY; G0378; J3480; U0002

== ENCOUNTER 2020-06-02 19:36 | Emergency (ER) | payer BC, MEDICARE ==
[2020-06-02] MEDS ORDERED: Albuterol/Ipratropium 3.0-0.5 MG/3 ML Neb Soln NEB ONE (19:54)
[2020-06-02] MEDS ORDERED: Ondansetron 4 MG/2 ML SDV IVPUSH STA (20:27)
[2020-06-02] MEDS ORDERED: Morphine 4 MG/ML VIAL IVPUSH ONE ×4 (20:27→22:38)
[2020-06-02] MEDS ORDERED: Nitroglycerin/D5W 25 MG/250 ML BOTTLE IV SCH (20:30)
[2020-06-02] MEDS ORDERED: Furosemide 40 MG/4 ML VIAL IVPUSH ONE (20:59)
--- NOTE | 2020-06-02 21:21 | EDM.PDOC ---
ED HPI GENERAL MEDICAL PROBLEM - General Chief Complaint: Chest Pain Stated Complaint: chest pain, sob, nausea Time Seen by Provider: 06/02/20 19:38 Source of Information: Reports: Patient, EMS History Limitations: Reports: No Limitations - History of Present Illness INITIAL COMMENTS - FREE TEXT/NARRATIVE: This patient is a 75 year old female that presents to the ER. Patient reports that at 2pm today she began having chest pain substernal and epigastric. She reports with it she had some nausea and shortness of breath. She reports that her shortness of breath she has had for 1 month with on and off chest pain, but much worse today since 2pm. Patient reports she was just sitting when pain and shortness of breath began. Patient reports that nothing makes it worse or better . She reports also for the past month having a dry cough. She reports that in late February she had a stroke and was sent to [facility]. 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 She reports recently moving to the community. Patient reports she has a long chronic history of HTN. She reports since her stroke it has been much worse and they have been trying different medications without success to treat it. Patient reports in 2013 she had a heart attack and had 2 stents placed. Patient reports history of being a smoker for several years and reports she wont stop. Onset: Today Onset Date: 06/02/20 Onset Time: 14:00 Duration: Hour(s): (6), Constant Location: Reports: Chest Quality: Reports: Sharp Severity: Severe Improves with: Reports: None Worsens with: Reports: None Associated Symptoms: Reports: Chest Pain, Cough, Nausea/Vomiting, Shortness of Breath. 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: Aspirin (324mg), Nitroglycerin (did help some per patient) Middle Chest Pain Score (Numeric/FACES): 6 - Related Data Allergies Allergy/AdvReac Type Severity Reaction Status Date / Time cefuroxime Allergy Facial Verified 06/02/20 19:44 Swelling chlorhexidine Allergy Facial Verified 06/02/20 19:44 Swelling erythromycin base Allergy Facial Verified 06/02/20 19:44 Swelling fentanyl Allergy Swollen Verified 06/02/20 19:44 Tongue gabapentin Allergy Facial Verified 06/02/20 19:44 Swelling hydrocodone Allergy Facial Verified 06/02/20 19:44 Swelling ketorolac [From Toradol] Allergy Facial Verified 06/02/20 19:44 Swelling levofloxacin [From Levaquin] Allergy Facial Verified 06/02/20 19:44 Swelling midazolam [From Versed] Allergy Facial Verified 06/02/20 19:44 Swelling oxycodone Allergy Facial Verified 06/02/20 19:44 Swelling Penicillins Allergy Swelling Verified 06/02/20 19:44 Sulfa (Sulfonamide Allergy Facial Verified 06/02/20 19:44 Antibiotics) Swelling sumatriptan [From Imitrex] Allergy Facial Verified 06/02/20 19:44 Swelling tetracycline Allergy Facial Verified 06/02/20 19:44 Swelling Home Meds: Home Meds Acetaminophen [Tylenol Extra Strength] 1,000 mg PO TID 12/26/19 [History] Calcium Carbonate/Vitamin D3 [Calcium 1,000 + D3 Caplet] 1 tab PO DAILY 12/26/19 [History] Omeprazole Magnesium [Prilosec] 20 mg PO BID 12/26/19 [History] lisinopriL [Lisinopril] 20 mg PO BID 12/26/19 [History] atorvaSTATin [Lipitor] 40 mg PO BEDTIME 03/23/20 [History] cloNIDine [Catapres] 0.2 mg PO BID 03/23/20 [History] Aspirin 325 mg PO DAILY 06/02/20 [History] Clopidogrel [Plavix] 75 mg PO DAILY 06/02/20 [History] Isosorbide Mononitrate [Imdur] 30 mg PO DAILY 06/02/20 [History] Nebivolol HCl [Bystolic] 5 mg PO DAILY 06/02/20 [History] Simvastatin 10 mg PO BEDTIME 06/02/20 [History] amLODIPine [Norvasc] 10 mg PO DAILY 06/02/20 [History] traMADol [Ultram] 1 - 2 tab PO Q6H PRN 06/02/20 [History] Past Medical History Cardiovascular History: Reports: High Cholesterol, Hypertension, VA, Stents Other Cardiovascular History: VA 2013. stents placed 2013 Gastrointestinal History: Reports: GERD Musculoskeletal History: Reports: Other (See Below) Other Musculoskeletal History: C5-C7 fractures Neurological History: Reports: CVA Other Neuro History: deficits of reading and writing, cva February 2020 Endocrine/Metabolic History: Reports: Osteoporosis, Other (See Below) Other Endocrine/Metabolic History: parathyroid tumor Oncologic (Cancer) History: Reports: Cervix - Past Surgical History HEENT Surgical History: Reports: Other (See Below) Other HEENT Surgeries/Procedures: hx of uveitis Endocrine Surgical History: Reports: Parathyroidectomy Musculoskeletal Surgical History: Reports: Hip Replacement, Knee Replacement Other Musculoskeletal Surgeries/Procedures:: bilateral total hip replacements. left total knee replacement Social & Family History - Family History Family Medical History: No Pertinent Family History - Tobacco Use Tobacco Use Status *Q: Current Every Day Tobacco User Years of Tobacco use: 54 Packs/Tins Daily: 1.5 - Caffeine Use Caffeine Use: Reports: Coffee, Soda - Recreational Drug Use Recreational Drug Use: No ED ROS GENERAL - Review of Systems Review Of Systems: See Below Constitutional: Reports: No Symptoms HEENT: Reports: No Symptoms Respiratory: Reports: Shortness of Breath, Wheezing, Cough. Denies: Pleuritic Chest Pain, Sputum Cardiovascular: Reports: Chest Pain, Dyspnea on Exertion Endocrine: Reports: No Symptoms GI/Abdominal: Reports: Nausea. Denies: Abdominal Pain : Reports: No Symptoms Musculoskeletal: Reports: No Symptoms Skin: Reports: No Symptoms Neurological: Reports: No Symptoms Psychiatric: Reports: No Symptoms Hematologic/Lymphatic: Reports: No Symptoms Immunologic: Reports: No Symptoms ED EXAM, GENERAL - Physical Exam Exam: See Below Exam Limited By: No Limitations General Appearance: Alert, WD/WN, No Apparent Distress Eye Exam: Bilateral Eye: Normal Inspection, PERRL Ears: Normal External Exam, Normal Canal, Hearing Grossly Normal, Normal TMs Ear Exam: Bilateral Ear: Auricle Normal, Canal Normal, TM normal Nose: Normal Inspection, Normal Mucosa, No Blood Throat/Mouth: Normal Inspection, Normal Lips, Normal Teeth, Normal Gums, Normal Oropharynx, Normal Voice, No Airway Compromise Head: Atraumatic, Normocephalic Neck: Normal Inspection, Supple, Non-Tender, Full Range of Motion Respiratory/Chest: No Respiratory Distress, No Accessory Muscle Use, Chest Non- Tender, Decreased Breath Sounds (severe throughout), Wheezing (expiratory bilateral bases) Cardiovascular: Normal Peripheral Pulses, Regular Rate, Rhythm, No Edema, No Gallop, No JVD, No Rub Peripheral Pulses: 2+: Radial (L), Radial (R), Posterior Tibial (L), Posterior Tibial (R) GI/Abdominal: Soft, Non-Tender Back Exam: Normal Inspection Extremities: Normal Inspection, Normal Range of Motion, Non-Tender, Normal Capillary Refill, Pedal Edema (+1 BLE) Neurological: Alert, Oriented, Normal Cognition, Normal Gait, No Motor/Sensory Deficits Psychiatric: Normal Affect, Normal Mood Skin Exam: Warm, Dry, Intact, Normal Color, No Rash #1 Interpretation EKG Date: 06/02/20 Time: 19:43 Rhythm: NSR Rate (Beats/Min): 77 ST-T: Normal Comparison: NA - No Prior EKG #2 Interpretation EKG Date: 06/02/20 Time: 21:42 Rhythm: NSR Rate (Beats/Min): 78 ST-T: Normal Comparison: No Change (from previous at 1943 today) Course - Vital Signs Last Recorded V/S: Last Vital Signs Temp 97.7 F 06/02/20 19:37 Pulse 76 06/02/20 22:20 Resp 18 06/02/20 22:20 BP 157/64 H 06/02/20 22:20 Pulse Ox 95 06/02/20 22:20 - Orders/Labs/Meds Labs: Laboratory Tests 06/02/20 06/02/20 06/02/20 Range/Units 19:48 19:48 20:06 WBC 9.6 (5.0-10.0) 10^3/uL RBC 4.03 (4.00-5.50) 10^6/uL Hgb 11.3 L (12.0-16.0) g/dL Hct 35.2 L (37.0-47.0) % MCV 87.3 (82.0-94.0) fL MCH 28.0 (27.0-32.0) pg MCHC 32.1 L (33.0-38.0) g/dL RDW Coeff of Juanito 15.3 H (11.0-15.0) % Plt Count 492 H (150-400) 10^3/uL Neut % (Auto) 68.5 (35-85) % Lymph % (Auto) 22.2 (10-55) % [place] % (Auto) 7.3 (0-16) % Eos % (Auto) 1.3 (0-5) % Baso % (Auto) 0.7 (0-3) % Neut # (Auto) 6.60 (1.80-7.00) 10^3/uL Lymph # (Auto) 2.14 (1.00-4.80) 10^3/uL [place] # (Auto) 0.70 (0.00-0.80) 10^3/uL Eos # (Auto) 0.13 (0.00-0.45) 10^3/uL Baso # (Auto) 0.07 10^3/uL PT (9.7-12.3) SEC INR (0.92-1.18) APTT (23.2-32.3) SEC Sodium 143 (136-145) mEq/L Potassium 4.2 (3.5-5.0) mEq/L Chloride 103 (98-106) mEq/L Carbon Dioxide 31 (21-32) mmol/L BUN 24 H (7-18) mg/dL Creatinine 1.3 H (0.6-1.0) mg/dL Est Cr Clr Drug Dosing 33.28 mL/min Estimated GFR (MDRD) 40 L (>=60) mL/min Glucose 123 H D (75-99) mg/dL Calcium 8.0 L (8.4-10.1) mg/dL Total Bilirubin 0.3 (0.0-1.0) mg/dL AST 18 (15-37) U/L ALT 24 (12-78) U/L Alkaline Phosphatase 106 (46-116) U/L Lactate Dehydrogenase 204 H (100-190) U/L Creatine Kinase 141 (21-215) U/L Troponin I 0.166 H (0.00-0.06) ng/mL C-Reactive Protein 1.7 H (0.2-0.8) mg/dL NT-Pro-B Natriuret Pep 9948 H (0-1000) pg/mL Total Protein 7.8 (6.4-8.2) g/dL Albumin 3.3 L (3.4-5.0) g/dL SARS CoV-2 RNA Rapid RONI Negative (NEGATIVE) 06/02/20 06/02/20 Range/Units 22:01 22:01 WBC (5.0-10.0) 10^3/uL RBC (4.00-5.50) 10^6/uL Hgb (12.0-16.0) g/dL Hct (37.0-47.0) % MCV (82.0-94.0) fL MCH (27.0-32.0) pg MCHC (33.0-38.0) g/dL RDW Coeff of Juanito (11.0-15.0) % Plt Count (150-400) 10^3/uL Neut % (Auto) (35-85) % Lymph % (Auto) (10-55) % [place] % (Auto) (0-16) % Eos % (Auto) (0-5) % Baso % (Auto) (0-3) % Neut # (Auto) (1.80-7.00) 10^3/uL Lymph # (Auto) (1.00-4.80) 10^3/uL [place] # (Auto) (0.00-0.80) 10^3/uL Eos # (Auto) (0.00-0.45) 10^3/uL Baso # (Auto) 10^3/uL PT 12.9 H (9.7-12.3) SEC INR 1.28 H (0.92-1.18) APTT 24.6 (23.2-32.3) SEC Sodium (136-145) mEq/L Potassium (3.5-5.0) mEq/L Chloride (98-106) mEq/L Carbon Dioxide (21-32) mmol/L BUN (7-18) mg/dL Creatinine (0.6-1.0) mg/dL Est Cr Clr Drug Dosing mL/min Estimated GFR (MDRD) (>=60) mL/min Glucose (75-99) mg/dL Calcium (8.4-10.1) mg/dL Total Bilirubin (0.0-1.0) mg/dL AST (15-37) U/L ALT (12-78) U/L Alkaline Phosphatase (46-116) U/L Lactate Dehydrogenase (100-190) U/L Creatine Kinase (21-215) U/L Troponin I 0.545 H (0.00-0.06) ng/mL C-Reactive Protein (0.2-0.8) mg/dL NT-Pro-B Natriuret Pep (0-1000) pg/mL Total Protein (6.4-8.2) g/dL Albumin (3.4-5.0) g/dL SARS CoV-2 RNA Rapid RNOI (NEGATIVE) Meds: Medications Discontinued Medications Generic Name Dose Route Start Last Admin Trade Name Smith PRN Reason Stop Dose Admin Albuterol/Ipratropium 3 ml 06/02/20 19:54 06/02/20 20:30 Duoneb 3.0-0.5 Mg/3 Ml NEB 06/02/20 19:55 3 ml ONETIME ONE Administration Furosemide 40 mg 06/02/20 20:59 06/02/20 21:07 Lasix IVPUSH 06/02/20 21:00 40 mg ONETIME ONE Administration Heparin Sodium (Porcine) 3,409 units 06/02/20 21:46 06/02/20 22:09 Heparin Sodium IVPUSH 06/02/20 21:47 3,409 units ONETIME ONE Administration Nitroglycerin/Dextrose 25 mg in 250 mls @ 6 mls/hr 06/02/20 20:30 06/02/20 22:43 Nitroglycerin 25 Mg/D5w 250 Ml IV 20 mcg/min TITRATE DEANNE 12 mls/hr Infusion Protocol 10 MCG/MIN Heparin Sodium/Dextrose 25,000 units in 500 mls @ 13.608 mls/hr 06/02/20 22:00 06/02/20 21:59 Heparin 25,000 Units In D5w 500 Ml IV 12 units/kg/hr TITRATE DEANNE 13.608 mls/hr Administration Protocol 12 UNITS/KG/HR Heparin Sodium/Sodium Chloride Confirm 06/02/20 22:15 06/02/20 21:59 Heparin 25,000 Units In 1/2 Ns 500 Ml Administered 06/02/20 22:16 Not Given Dose 500 mls @ as directed .ROUTE .STK-MED ONE Labetalol HCl 20 mg 06/02/20 22:50 06/02/20 22:54 Normodyne IVPUSH 06/02/20 22:51 4 ml ONETIME ONE Administration Protocol Morphine Sulfate 4 mg 06/02/20 20:27 06/02/20 20:37 Morphine IVPUSH 06/02/20 20:28 4 mg ONETIME ONE Administration Morphine Sulfate 4 mg 06/02/20 21:03 06/02/20 21:07 Morphine IVPUSH 06/02/20 21:04 4 mg ONETIME ONE Administration Morphine Sulfate 4 mg 06/02/20 21:41 06/02/20 21:47 Morphine IVPUSH 06/02/20 21:42 4 mg ONETIME ONE Administration Morphine Sulfate 4 mg 06/02/20 22:38 06/02/20 22:40 Morphine IVPUSH 06/02/20 22:39 4 mg ONETIME ONE Administration Ondansetron HCl 4 mg 06/02/20 20:27 06/02/20 20:37 Zofran IVPUSH 06/02/20 20:28 4 mg NOW STA Administration Pantoprazole Sodium 40 mg 06/02/20 22:17 06/02/20 22:30 Protonix Iv IVPUSH 06/02/20 22:18 40 mg ONETIME ONE Administration - Radiology Interpretation Free Text/Narrative:: CXR: no infiltrates seen, pulmonary vascular congestion, CHF. - Re-Assessments/Exams Free Text/Narrative Re-Assessment/Exam: 06/02/20 2100 I called [facility] to arrange transfer, accepting, they will have to call me back. HEART Score 7 High 06/02/20 21:10 I reviewed labs and results with patient. She reports that she does not want to be transferred because she is a DNR. I explained to the patient that if she would like treatment she should be transferred. She would like me to talk to her about this, so I called him, he came to the ER. I discussed results and treatment options with patient and . Patient then has accepted transfer. 06/02/20 21:15 I got call back and spoke to Dr. Horvath hospitalist at [facility]. He reports to go ahead and give heparin gtt and bolus and repeat EKG. Her reports should fly patient since [address] and patient has troponin elevation with active chest pain. Also, in [place] we currently do not have ALS capabilities either. 06/02/20 21:50 Patient pain level increased to 9-10/10 scale. Patient has requested something for pain and request skim milk or something for acid reflux. I will order Morphine again. 06/02/20 22:20 Patient reports her pain level is currently an 8/10. 06/02/20 22:30 Pain level now a 9/10. I called and spoke to Dr. Horvath again about patient repeat troponin and increase in chest pain. Nitro is currently running at 10mcg. He reports may titrate, this was increased to 15 mcg. I also ordered another Morphine 4mg. 06/02/20 22:36 Patient reports still having chest pain, but now at a increased 10/10. Nitro increased titrated to 20 mcg. 3rd, repeat EKG is faxed to or nurse manager. 06/02/20 22:39 Flight has arrived and now at patient bedside. 06/02/20 22:47 I called [facility] to see if they received the EKG, or nurse manager is reviewing. Patient reports her pain score is currently a 10/10. Patient has been given 16mg Morphine IV, Nitro at 20mcg, Protonix 40mg IV, Lasix 40mg IV. Patient also currently has heparin gtt. Spoke to or nurse manager now Dr. Hinkle, he is accepting. Reports go to ER and if still having pain will cath tonight. Flight notified. Will change accepting provider as well. Departure - Departure Time of Disposition: 23:00 Disposition: DC/Tfer to Acute Hospital 02 Reason for Transfer *Q: Other Condition: Serious Clinical Impression: Non-STEMI (non-ST elevated myocardial infarction) Referrals: Ricardo Tripathi PA-C [Primary Care Provider] - Forms: ED Department Discharge Sepsis Event Note (ED) - Evaluation Sepsis Screening Result: No Definite Risk - Assessment/Plan Plan: PLEASE SEE RN NOTE FOR [facility] Patient will be flying to [facility]. Risk vs benefits explained to the patient, she has accepted transfer. The risk with transfer is helicopter crash, , worsening of condition, cardiac arrest. The risk with staying in [place] is no or nurse manager, , worsening of condition. The benefits of staying in [place] is close to home. The benefits with going to [place] is or nurse manager, higher level of care.
[2020-06-02] MEDS ORDERED: Heparin Sodium 5,000 Units/ML Vial IVPUSH ONE (21:46)
[2020-06-02] MEDS ORDERED: Heparin Sodium/D5W 25,000 UNITS/500 ML BAG IV SCH (22:00)
[2020-06-02 22:11] LABS: PTT,PARTIAL THROMBOPLSTIN TIME 24.6 SEC (23.2-32.3)
[2020-06-02] MEDS ORDERED: Heparin Sodium/0.45% NaCl 500 ML ONE (22:15)
[2020-06-02] MEDS ORDERED: Pantoprazole 40 MG Vial IVPUSH ONE (22:17)
[2020-06-02 22:24] VITALS: BP 157/64; PULSE 76
[2020-06-02] MEDS ORDERED: Labetalol 100 MG/20 ML MDV IVPUSH ONE (22:50)
== END 2020-06-02 23:01 ==
LOC: CC.ED 19:36
DX: I21.4 Non-ST elevation (NSTEMI) myocardial infarction (principal); E78.00 Pure hypercholesterolemia, unspecified; I10 Essential (primary) hypertension; K21.9 Gastro-esophageal reflux disease without esophagitis; Z20.822 Contact with and (suspected) exposure to COVID-19; Z88.1 Allergy status to other antibiotic agents; Z88.8 Allergy status to other drugs, medicaments and biological substances; Z88.4 Allergy status to anesthetic agent; Z88.5 Allergy status to narcotic agent; Z88.6 Allergy status to analgesic agent; Z88.0 Allergy status to penicillin; Z88.2 Allergy status to sulfonamides; Z79.899 Other long term (current) drug therapy; Z79.82 Long term (current) use of aspirin; Z79.02 Long term (current) use of antithrombotics/antiplatelets; Z95.5 Presence of coronary angioplasty implant and graft; Z86.73 Personal history of transient ischemic attack (TIA), and cerebral infarction without residual deficits; Z72.0 Tobacco use
CPT/HCPCS: 36415; 51702; 71045; 80053; 82550; 83615; 83880; 84484; 85025; 85610; 85730; 86140; 93005; 94640; 96365; 96366; 96368; 96375; 96376; 99285-25; C9113; J1644; J1940; J2270; J2405; J3490; J7620-GY; U0002

== ENCOUNTER 2020-10-12 04:30 | Emergency (ER) | payer BC, MEDICARE ==
[2020-10-12] MEDS ORDERED: Aspirin 81 MG Tab.Chew PO STA (04:32)
[2020-10-12] MEDS ORDERED: Sodium Chloride 0.9% 10 ML Syringe FLUSH PRN (04:44)
[2020-10-12] MEDS: Morphine 2 MG/ML SYRINGE IVPUSH PRN ×2 (04:53→06:08)
[2020-10-12 05:02] LABS: PTT,PARTIAL THROMBOPLSTIN TIME 24.4 SEC (23.2-32.3)
--- NOTE | 2020-10-12 05:02 | EDM.PDOC ---
ED HPI GENERAL MEDICAL PROBLEM - General Chief Complaint: General Stated Complaint: CP Time Seen by Provider: 10/12/20 04:30 Source of Information: Reports: Patient History Limitations: Reports: No Limitations - History of Present Illness INITIAL COMMENTS - FREE TEXT/NARRATIVE: Mel is a 75 year old female who presents to ER with midsternal chest pain for the last few hours. Unsure exactly what time pain started. Did tae 3 nitro at home prior to arrival. Complains of nausea, no vomiting. Was diaphoretic earlier. has history of "intense indigestion as well and cannot differentiate between heart pain and that". She has a strong cardiac history, had 2 stents several years ago and most recently a UT with stents in May. Also reports history of uncontrolled hypertension and a CVA last fall. Does still have trouble with reading and writing since her stroke. Admits has chronic neck pain, took morphine at home around 8 pm. Was not having chest pain at that jerrod e. Typical day, eating and drinking well until chest pain started. Was just up resting in the chair when pain started. Rates at a 10/10. Patient also reports history of renal insufficiency. Has "50% function of only one kidney". Onset: Today, Sudden Duration: Hour(s):, Constant Location: Reports: Chest Quality: Reports: Ache, Sharp Severity: Severe Improves with: Reports: None Associated Symptoms: Reports: Chest Pain, Cough, Diaphoresis, Nausea/Vomiting, Shortness of Breath. 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 BANKING REPRESENTATIVE: Reports: Nitroglycerin Middle Chest Pain Score (Numeric/FACES): 10 - Related Data Allergies Allergy/AdvReac Type Severity Reaction Status Date / Time cefuroxime Allergy Facial Verified 10/12/20 05:33 Swelling chlorhexidine Allergy Facial Verified 10/12/20 05:33 Swelling erythromycin base Allergy Facial Verified 10/12/20 05:33 Swelling fentanyl Allergy Swollen Verified 10/12/20 05:33 Tongue gabapentin Allergy Facial Verified 10/12/20 05:33 Swelling hydrocodone Allergy Facial Verified 10/12/20 05:33 Swelling ketorolac [From Toradol] Allergy Facial Verified 10/12/20 05:33 Swelling levofloxacin [From Levaquin] Allergy Facial Verified 10/12/20 05:33 Swelling midazolam [From Versed] Allergy Facial Verified 10/12/20 05:33 Swelling oxycodone Allergy Facial Verified 10/12/20 05:33 Swelling Penicillins Allergy Swelling Verified 10/12/20 05:33 Sulfa (Sulfonamide Allergy Facial Verified 10/12/20 05:33 Antibiotics) Swelling sumatriptan [From Imitrex] Allergy Facial Verified 10/12/20 05:33 Swelling tetracycline Allergy Facial Verified 10/12/20 05:33 Swelling Home Meds: Home Meds Acetaminophen [Tylenol Extra Strength] 1,000 mg PO TID 12/26/19 [History] Calcium Carbonate/Vitamin D3 [Calcium 1,000 + D3 Caplet] 1 tab PO DAILY 12/26/19 [History] Omeprazole Magnesium [Prilosec] 20 mg PO BID 12/26/19 [History] lisinopriL [Lisinopril] 20 mg PO BID 12/26/19 [History] atorvaSTATin [Lipitor] 40 mg PO BEDTIME 03/23/20 [History] cloNIDine [Catapres] 0.2 mg PO BID 03/23/20 [History] Clopidogrel [Plavix] 75 mg PO DAILY 06/02/20 [History] Isosorbide Mononitrate [Imdur] 30 mg PO DAILY 06/02/20 [History] amLODIPine [Norvasc] 10 mg PO DAILY 06/02/20 [History] traMADol [Ultram] 1 - 2 tab PO Q6H PRN 06/02/20 [History] Aspirin 1 tab PO DAILY 10/12/20 [History] Metoprolol Tartrate 1.5 tab PO BID 10/12/20 [History] Pantoprazole Sodium [Protonix] 40 mg PO DAILY #30 tablet. 10/12/20 [Rx] Sucralfate [Carafate] 1 gm PO ACBED 14 Days #56 tab 10/12/20 [Rx] Past Medical History Cardiovascular History: Reports: High Cholesterol, Hypertension, UT, Stents Other Cardiovascular History: UT 2013. stents placed 2013 Gastrointestinal History: Reports: GERD Musculoskeletal History: Reports: Other (See Below) Other Musculoskeletal History: C5-C7 fractures Neurological History: Reports: CVA Other Neuro History: deficits of reading and writing, cva February 2020 Endocrine/Metabolic History: Reports: Osteoporosis, Other (See Below) Other Endocrine/Metabolic History: parathyroid tumor Oncologic (Cancer) History: Reports: Cervix - Past Surgical History HEENT Surgical History: Reports: Other (See Below) Other HEENT Surgeries/Procedures: hx of uveitis Endocrine Surgical History: Reports: Parathyroidectomy Musculoskeletal Surgical History: Reports: Hip Replacement, Knee Replacement Other Musculoskeletal Surgeries/Procedures:: bilateral total hip replacements. left total knee replacement Social & Family History - Family History Family Medical History: No Pertinent Family History - Tobacco Use Tobacco Use Status *Q: Current Every Day Tobacco User - Caffeine Use Caffeine Use: Reports: Coffee, Soda ED ROS GENERAL - Review of Systems Review Of Systems: See Below Constitutional: Denies: Fever, Chills, Malaise, Weakness, Fatigue, Decreased Appetite HEENT: Denies: Ear Pain, Sinus Problem, Throat Pain, Vertigo Respiratory: Reports: Shortness of Breath, Cough Cardiovascular: Reports: Chest Pain. Denies: Edema, Lightheadedness Endocrine: Reports: Fatigue GI/Abdominal: Reports: Nausea. Denies: Abdominal Pain, Constipation, Diarrhea, Vomiting : Reports: No Symptoms Musculoskeletal: Reports: No Symptoms Skin: Reports: No Symptoms Neurological: Reports: No Symptoms ED EXAM, GENERAL - Physical Exam Exam: See Below Exam Limited By: No Limitations General Appearance: Alert, WD/WN, Mild Distress Ears: Normal External Exam, Normal TMs Nose: Normal Inspection, Normal Mucosa Throat/Mouth: Normal Inspection, Normal Oropharynx Head: Normocephalic Neck: Normal Inspection, Supple, Non-Tender Respiratory/Chest: No Respiratory Distress, Lungs Clear, Decreased Breath Sounds Cardiovascular: Normal Peripheral Pulses, Regular Rate, Rhythm, No Edema GI/Abdominal: Normal Bowel Sounds, Soft, Non-Tender Extremities: Normal Inspection, No Pedal Edema Neurological: Alert, Oriented Skin Exam: Warm, Dry Course - Vital Signs Last Recorded V/S: Last Vital Signs Temp 98 F 10/12/20 09:41 Pulse 61 10/12/20 09:41 Resp 18 10/12/20 09:41 BP 193/72 H 10/12/20 09:41 Pulse Ox 98 10/12/20 09:41 - Orders/Labs/Meds Labs: Laboratory Tests 10/12/20 10/12/20 10/12/20 Range/Units 04:45 04:45 04:45 WBC 8.8 (5.0-10.0) 10^3/uL RBC 3.95 L (4.00-5.50) 10^6/uL Hgb 11.2 L (12.0-16.0) g/dL Hct 34.5 L (37.0-47.0) % MCV 87.3 (82.0-94.0) fL MCH 28.4 (27.0-32.0) pg MCHC 32.5 L (33.0-38.0) g/dL RDW Coeff of Juanito 15.0 (11.0-15.0) % Plt Count 428 H (150-400) 10^3/uL Neut % (Auto) 53.7 (35-85) % Lymph % (Auto) 32.3 (10-55) % [place] % (Auto) 11.6 (0-16) % Eos % (Auto) 1.9 (0-5) % Baso % (Auto) 0.5 (0-3) % Neut # (Auto) 4.72 (1.80-7.00) 10^3/uL Lymph # (Auto) 2.84 (1.00-4.80) 10^3/uL [place] # (Auto) 1.02 H (0.00-0.80) 10^3/uL Eos # (Auto) 0.17 (0.00-0.45) 10^3/uL Baso # (Auto) 0.04 10^3/uL PT 11.2 (9.7-12.3) SEC INR 1.03 (0.92-1.18) APTT 24.4 (23.2-32.3) SEC Sodium 140 (136-145) mEq/L Potassium 4.1 (3.5-5.0) mEq/L Chloride 100 (98-106) mEq/L Carbon Dioxide 30 (21-32) mmol/L BUN 24 H (7-18) mg/dL Creatinine 1.7 H (0.6-1.0) mg/dL Est Cr Clr Drug Dosing TNP Estimated GFR (MDRD) 29 L (>=60) mL/min Glucose 113 H (75-99) mg/dL Calcium 9.1 (8.4-10.1) mg/dL Total Bilirubin 0.2 (0.0-1.0) mg/dL AST 49 H (15-37) U/L ALT 32 (12-78) U/L Alkaline Phosphatase 131 H (46-116) U/L Creatine Kinase 91 (21-215) U/L Troponin I < 0.017 (0.00-0.06) ng/mL Total Protein 7.7 (6.4-8.2) g/dL Albumin 3.4 (3.4-5.0) g/dL 10/12/20 Range/Units 09:00 WBC (5.0-10.0) 10^3/uL RBC (4.00-5.50) 10^6/uL Hgb (12.0-16.0) g/dL Hct (37.0-47.0) % MCV (82.0-94.0) fL MCH (27.0-32.0) pg MCHC (33.0-38.0) g/dL RDW Coeff of Juanito (11.0-15.0) % Plt Count (150-400) 10^3/uL Neut % (Auto) (35-85) % Lymph % (Auto) (10-55) % [place] % (Auto) (0-16) % Eos % (Auto) (0-5) % Baso % (Auto) (0-3) % Neut # (Auto) (1.80-7.00) 10^3/uL Lymph # (Auto) (1.00-4.80) 10^3/uL [place] # (Auto) (0.00-0.80) 10^3/uL Eos # (Auto) (0.00-0.45) 10^3/uL Baso # (Auto) 10^3/uL PT (9.7-12.3) SEC INR (0.92-1.18) APTT (23.2-32.3) SEC Sodium (136-145) mEq/L Potassium (3.5-5.0) mEq/L Chloride (98-106) mEq/L Carbon Dioxide (21-32) mmol/L BUN (7-18) mg/dL Creatinine (0.6-1.0) mg/dL Est Cr Clr Drug Dosing Estimated GFR (MDRD) (>=60) mL/min Glucose (75-99) mg/dL Calcium (8.4-10.1) mg/dL Total Bilirubin (0.0-1.0) mg/dL AST (15-37) U/L ALT (12-78) U/L Alkaline Phosphatase (46-116) U/L Creatine Kinase (21-215) U/L Troponin I < 0.017 (0.00-0.06) ng/mL Total Protein (6.4-8.2) g/dL Albumin (3.4-5.0) g/dL Meds: Medications Discontinued Medications Generic Name Dose Route Start Last Admin Trade Name Freq PRN Reason Stop Dose Admin Aspirin 324 mg 10/12/20 04:32 10/12/20 05:13 Aspirin 81 Mg Tab.Chew PO 10/12/20 04:33 324 mg ONETIME STA Administration Al Hydroxide/Mg Hydroxide 30 0 ml 10/12/20 05:06 10/12/20 05:10 ml/ Lidocaine HCl 15 ml PO 10/12/20 05:07 30 ml ONETIME ONE Administration Morphine Sulfate 1 mg 10/12/20 04:44 10/12/20 06:08 Morphine 2 Mg/Ml Syringe IVPUSH 1 mg Q1H PRN Administration Pain (severe 7-10) Nitroglycerin 0.4 mg 10/12/20 04:44 10/12/20 09:05 Nitroglycerin 0.4 Mg Tab.Sl SL 10/13/20 04:44 0.4 mg Q5M PRN Administration Chest Pain Sodium Chloride 10 ml 10/12/20 04:44 Sodium Chloride 0.9% 10 Ml Syringe FLUSH ASDIRECTED PRN Keep Vein Open - Re-Assessments/Exams Free Text/Narrative Re-Assessment/Exam: 10/12/20 05:13 Labs results unremarkable at this time, troponin negative. GI cocktail ordered. Is getting relief from morphine. Will repeat troponin at 0900. Patient agreeable to plan. 0930- patient did continue to have intermittent chest discomfort. Morphine was given as well as nitro. EKG remains unchanged, troponin still negative. Will start on Protonix versus her usual Prilosec and carafate. Follow up with Vijay for persisting concerns. Departure - Departure Time of Disposition: 09:30 Disposition: Home, Self-Care 01 Condition: Fair Clinical Impression: Atypical chest pain Prescriptions: Sucralfate [Carafate] 1 gm PO ACBED 14 Days #56 tab Pantoprazole Sodium [Protonix] 40 mg PO DAILY #30 tablet.dr Instructions: Nonspecific Chest Pain, Adult, [id number] Referrals: PCP,None [Primary Care Provider] - Forms: ED Department Discharge Additional Instructions: 1. Rest 2. Push fluids 3. [place] diet 4. Switch Prilosec to Protonix 40 mg daily 5. Carafate 1 tab before meals and bedtime for 2 weeks. 6. Follow up with Vijay Tripathi if persisting pain or concern
[2020-10-12] MEDS ORDERED: Alum Hydrox/Mag Hydrox/Simeth 30 ML, Lidocaine 2% 15 ML PO ONE ×2 (05:06)
[2020-10-12 05:07] LABS: CHLORIDE,CL 100 mEq/L (98-106); SODIUM,NA 140 mEq/L (136-145)
[2020-10-12] MEDS: Nitroglycerin 0.4 MG Tab.SL SL PRN ×2 (06:28→09:05)
== END 2020-10-12 09:44 | disposition home or self-care (01) ==
LOC: CC.ED 04:30
DX: R07.89 Other chest pain (principal); E78.00 Pure hypercholesterolemia, unspecified; I10 Essential (primary) hypertension; I25.2 Old myocardial infarction; K21.9 Gastro-esophageal reflux disease without esophagitis; Z88.1 Allergy status to other antibiotic agents; Z91.048 Other nonmedicinal substance allergy status; Z88.4 Allergy status to anesthetic agent; Z88.6 Allergy status to analgesic agent; Z88.5 Allergy status to narcotic agent; Z88.0 Allergy status to penicillin; Z88.2 Allergy status to sulfonamides; Z79.899 Other long term (current) drug therapy; Z79.02 Long term (current) use of antithrombotics/antiplatelets; Z72.0 Tobacco use
CPT/HCPCS: 36415; 71046; 80053; 82550; 84484; 85025; 85610; 85730; 93005; 96374; 96376; 99285-25; A9270-GY; J2270